=== PATIENT | male | born 1995 | race Caucasian/White ===

== ENCOUNTER 2017-10-25 21:44 | Inpatient (IN) | payer SELFPAY ==
[~2017-10-25] VITALS: Ht 175.3 cm; Wt 62.5 kg
[2017-10-25] MEDS ORDERED: DIPHTH/TETANUS/ACEL PERTUSSIS (BOOSTER) 0.5 ML VIAL/PFS IM ONE (21:47)
[2017-10-25] MEDS ORDERED: ceFAZolin 2 GM PREMIX 50 ML ONE (21:47)
[2017-10-25] MEDS ORDERED: PROPOFOL 1000 MG/100 ML INJ 100 ML ONE (21:52)
[2017-10-25] MEDS ORDERED: MIDAZOLAM HCL 5 MG/ML VIAL (1 ML) ONE (21:52)
[2017-10-25] MEDS ORDERED: GENTAMICIN 80 MG PREMIX 100 ML ONE (21:57)
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
[2017-10-25] MEDS ORDERED: IOHEXOL 350 MG/ML 10 ML VIAL (for RAD DIAG) IVCONTRAST ONE (22:24)
[2017-10-25] MEDS ORDERED: BISACODYL 10 MG SUPP RECTAL PRN (22:30)
[2017-10-25] MEDS ORDERED: PROPOFOL 1000 MG/100 ML INJ 100 ML IV PRN (22:30)
[2017-10-25] MEDS ORDERED: CHLORHEXIDINE GLUCONATE 2 % 1 PACK (2 CLOTHS) TOP PRN (22:30)
[2017-10-25] MEDS ORDERED: MISCELLANEOUS NURSING INFORMATION XX SCH (22:30)
[2017-10-25] MEDS ORDERED: fentaNYL DRIP 250 ML IV PRN (22:30)
[2017-10-25] MEDS ORDERED: LACTULOSE SYRUP 20 GM/30 ML CUP PO PRN (22:30)
[2017-10-25] MEDS ORDERED: MAGNESIUM HYDROXIDE SUSP 30 ML CUP PO PRN (22:30)
[2017-10-25] MEDS ORDERED: SENNOSIDES 8.6 MG TAB PO PRN (22:30)
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
[2017-10-25 22:38] LABS: INTERNATIONAL NORMALIZED RATIO 1.1 RATIO; PROTHROMBIN TIME - PATIENT 11.6 SEC (9.8-11.6)
[2017-10-25 22:39] LABS: AUTOMATED NEUTROPHIL # 9.2 TH/MM3 (1.8-7.7); BASOPHIL # 0.1 TH/MM3 (0-0.2); BASOPHIL % 0.8 % (0.0-2.0); EOSINOPHIL # 0.1 TH/MM3 (0-0.4); EOSINOPHIL % 0.7 % (0.0-4.0); LYMPH % 26.8 % (9.0-44.0); LYMPHOCYTE # 3.7 TH/MM3 (1.0-4.8); MEAN CELL VOLUME 92.5 FL (80.0-100.0); MEAN CORPUSCULAR HEMOGLOBIN 31.4 PG (27.0-34.0); MEAN PLATELET VOLUME 8.2 FL (7.0-11.0); MONO % 5.5 % (0.0-8.0); MONOCYTE # 0.8 TH/MM3 (0-0.9); NEUT % 66.2 % (16.0-70.0); PLATELET COUNT 420 TH/MM3 (150-450); RED BLOOD COUNT 4.76 MIL/MM3 (4.50-5.90); RED CELL DISTRIBUTION WIDTH 12.5 % (11.6-17.2)
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
[2017-10-25 23:00] VITALS: BP 165/79; PULSE 142; RESP 18; TEMP 97.9; O2SAT 100
[2017-10-25] MEDS: SODIUM CHLOR 0.9% 1000 ML INJ 1,000 ML IV SCH (23:00)
[2017-10-25] MEDS: cefTRIAXone INJ 1,000 MG in SODIUM CHLORIDE 0.9% INJ 100 ML IV SCH (23:00)
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
[2017-10-25] MEDS: FAMOTIDINE 20 MG/2 ML VIAL IV PUSH SCH (23:30)
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
[2017-10-25 23:50] VITALS: O2SAT 100
[2017-10-26] VITALS (18 sets, daily range): BP systolic 100–135; BP diastolic 56–79; PULSE 83–139; RESP 18; TEMP 97.9–99.3; O2SAT 100
--- NOTE | 2017-10-26 00:21 | PD.PROCEDR ---
Procedure Note Procedure Central line placement A time-out was completed verifying correct patient, procedure, site, positioning , and special equipment if applicable. The patient was placed in a dependent position appropriate for central line placement based on the vein to be cannulated. The patients right shoulder was prepped and draped in sterile fashion. 1% Lidocaine was used to anesthetize the surrounding skin area. A triple lumen 9-Angolan Cordis catheter was introduced into the the right subclavian vein using the Seldinger technique. The catheter was threaded smoothly over the guide wire and appropriate blood return was obtained. Each lumen of the catheter was evacuated of air and flushed with sterile saline. The catheter was then sutured in place to the skin and a sterile dressing applied. Perfusion to the extremity distal to the point of catheter insertion was checked and found to be adequate. Estimated Blood Loss: 1ml The patient tolerated the procedure well and there were no complications. Mayo Mao MD Oct 26, 2017 00:21
--- NOTE | 2017-10-26 00:22 | PD.OP ---
Operative Report Date of Surgery: Oct 26, 2017 Preoperative Diagnosis: Severe traumatic brain injury Postoperative Diagnosis: Same Procedure: Right frontal twist drill hole intracranial pressure monitor placement Anesthesia: Local with sedation Surgeon: Chandler Klein M.D. Construction Skills Teacher(s): None Operation and Findings: Following administration of Diprivan and fentanyl drips with the oxygen saturation and hemodynamic monitoring in the intensive care unit, the right frontal region was shaved and the prep with chlor prep and sterilely draped. Using landmarks of 11 cm behind the nasion and 3 cm to the right of the midline , a 1 cm scalp incision was made after infiltrating with 1% lidocaine with epinephrine solution. With a handheld drill a twist drill hole was made in the underlying dura penetrated with a blunt probe. The [place] bolt was then secured to the skull. The fiberoptic catheter zeroed and passed into the subarachnoid space with an opening pressure of 5 mmHg noted. A sterile dressing was applied. There were no complications and blood loss was less than 5 cc. Chandler Klein MD Oct 26, 2017 00:22
--- NOTE | 2017-10-26 00:52 | RADRPT ---
EXAM DATE/TIME: 10/26/2017 00:29 [facility] COMPARISON: CT THORAX W CONTRAST, October 25, 2017, 22:04. CHEST SINGLE AP, October 25, 2017, 21:33. INDICATIONS : Central line placement. MEDICAL HISTORY : None. SURGICAL HISTORY : None. ENCOUNTER: Subsequent ACUITY: 2 days PAIN SCORE: Non-responsive. LOCATION: Bilateral chest FINDINGS: Endotracheal tube tip is now approximately 5 cm above the marlen. There is a new subclavian central v enous catheter with tip at the atriocaval junction. There is a new nasogastric tube that courses into the stomach. Mild parenchymal consolidation seen right lower lobe, not convincingly changed. No large effusion/hem othorax demonstrated. No pneumothorax. CONCLUSION: Appropriate position of the lines and tubes as above. Mild patchy consolidation/contusion of the righ t lung again seen. Jonah Marie MD on October 26, 2017 at 0:49 Board Certified Radiologist. This report was verified electronically.
[2017-10-26] MEDS: SODIUM CHLOR 0.9% 1000 ML INJ 1,000 ML IV SCH ×5 (02:45→21:16)
[2017-10-26] MEDS: PROPOFOL 1000 MG/100 ML INJ 100 ML IV PRN ×3 (02:53→19:35)
[2017-10-26] MEDS: levETIRAcetam INJ 500 MG in SODIUM CHLORIDE 0.9% INJ 100 ML IV SCH ×3 (02:54→21:15)
--- NOTE | 2017-10-26 03:21 | PD.PROCEDR ---
Procedure Note Procedure Arterial line placement A time-out was completed verifying correct patient, procedure, site, positioning , and special equipment if applicable. Allens test was performed to ensure adequate perfusion. The patients left elbow was prepped and draped in sterile fashion. 1% Lidocaine was used to anesthetize the area. A 18G Arrow arterial line was introduced into the brachial artery. The catheter was threaded over the guide wire and the needle was removed with appropriate pulsatile blood return. The catheter was then sutured in place to the skin and a sterile dressing applied. Perfusion to the extremity distal to the point of catheter insertion was checked and found to be adequate. Estimated Blood Loss: 1ml The patient tolerated the procedure well and there were no complications. Mayo Mao MD Oct 26, 2017 3:21 am
[2017-10-26] MEDS: CHLORHEXIDINE GLUCONATE 2 % 1 PACK (2 CLOTHS) TOP SCH (04:00)
[2017-10-26 04:37] LABS: AUTOMATED NEUTROPHIL # 8.8 TH/MM3 (1.8-7.7); BASOPHIL % 0.3 % (0.0-2.0); EOSINOPHIL # 0.1 TH/MM3 (0-0.4); EOSINOPHIL % 0.5 % (0.0-4.0); HEMATOCRIT 31.2 % (39.0-51.0); HEMOGLOBIN 10.9 GM/DL (13.0-17.0); LYMPH % 9.5 % (9.0-44.0); MEAN CELL VOLUME 90.2 FL (80.0-100.0); MEAN CORPUSCULAR HEMOGLOBIN 31.4 PG (27.0-34.0); MEAN CORPUSCULAR HGB CONC 34.8 % (32.0-36.0); MEAN PLATELET VOLUME 7.3 FL (7.0-11.0); MONO % 7.4 % (0.0-8.0); MONOCYTE # 0.8 TH/MM3 (0-0.9); NEUT % 82.3 % (16.0-70.0); PLATELET COUNT 186 TH/MM3 (150-450); RED BLOOD COUNT 3.46 MIL/MM3 (4.50-5.90); RED CELL DISTRIBUTION WIDTH 12.6 % (11.6-17.2); WHITE BLOOD COUNT 10.7 TH/MM3 (4.0-11.0)
[2017-10-26 04:52] LABS: INTERNATIONAL NORMALIZED RATIO 1.3 RATIO; PROTHROMBIN TIME - PATIENT 12.7 SEC (9.8-11.6)
[2017-10-26 05:05] LABS: BICARBONATE 22.2 MEQ/L (21.0-32.0); CREATININE 0.83 MG/DL (0.60-1.30); MAGNESIUM 1.5 MG/DL (1.5-2.5)
[2017-10-26 05:17] LABS: TOTAL PROTEIN 5.2 GM/DL (6.4-8.2)
--- NOTE | 2017-10-26 05:26 | RADRPT ---
EXAM DATE/TIME: 10/26/2017 05:04 [facility] COMPARISON: CT BRAIN W/O CONTRAST, October 25, 2017, 21:58. INDICATIONS : Follow up trauma. RADIATION DOSE: 56.35 CTDIvol (mGy) MEDICAL HISTORY : Non-responsive. SURGICAL HISTORY : Non-responsive. ENCOUNTER: Subsequent ACUITY: 2 days PAIN SCALE: Non-responsive LOCATION: cranial TECHNIQUE: Multiple contiguous axial images were obtained of the head. Using automated exposure control and adj ustment of the mA and/or kV according to patient size, radiation dose was kept as low as reasonably a chievable to obtain optimal diagnostic quality images. DICOM format image data is available electro nically for review and comparison. FINDINGS: Small amounts of subdural blood along both cerebral convexities and in between the leaves of the falx and tentorium again noted, not significantly changed. I believe there is some patchy subarachnoid bl ood involving the sulci of the bilateral posterior parietal lobes as well. There is some apparent gen eralized brain swelling/edema, including the cerebellum. A right frontal pressure monitoring bolt has been placed in the interim and there is associated small anti-dependent pneumocephaly seen. No evidence of a focal ischemic event. No mass, mass effect or midline shift seen. CONCLUSION: No significant change small subdural and suspected trace subarachnoid blood as above. Some suspected brain swelling but without midline shift. New pressure monitoring bolt. Jonah Marie MD on October 26, 2017 at 5:22 Board Certified Radiologist. This report was verified electronically.
[2017-10-26] MEDS ORDERED: POTASSIUM CHLOR 20 MEQ PREMIX 100 ML IV PRN ×2 (07:30)
[2017-10-26] MEDS ORDERED: POTASSIUM CHLOR 40 MEQ PREMIX 100 ML IV PRN ×2 (07:30)
[2017-10-26] MEDS ORDERED: MAGNESIUM SULFATE INJ 4 GM in SODIUM CHLORIDE 0.9% INJ 92 ML IV PRN (07:30)
[2017-10-26] MEDS ORDERED: POTASSIUM PHOSPHATE MONOBASIC 500 MG TAB PO/TUBE PRN (07:30)
[2017-10-26] MEDS ORDERED: SODIUM PHOSPHATE INJ 30 MMOL in SODIUM CHLOR 0.9% 250 ML INJ 240 ML IV PRN (07:30)
[2017-10-26] MEDS ORDERED: RESP: ALBUTEROL 2.5 MG/IPRATROPIUM 0.5 MG NEB (PRN) NEB (07:30)
[2017-10-26] MEDS ORDERED: POTASSIUM CHLORIDE 20 MEQ PWD PACKET PO PRN (07:30)
[2017-10-26] MEDS ORDERED: POTASSIUM PHOSPHATE INJ 30 MMOL in SODIUM CHLOR 0.9% 250 ML INJ 250 ML IV PRN (07:30)
[2017-10-26] MEDS ORDERED: MAGNESIUM OXIDE 400 MG TAB PO PRN (07:30)
[2017-10-26] MEDS ORDERED: ALBUMIN 5% INJ 500 ML IV ONE (07:30)
[2017-10-26] MEDS ORDERED: POTASSIUM PHOSPHATE MONOBASIC 500 MG TAB PO PRN (07:30)
[2017-10-26] MEDS ORDERED: MAGNESIUM SULFATE INJ 2 GM in SODIUM CHLORIDE 0.9% INJ 96 ML IV PRN (07:30)
[2017-10-26] MEDS: CHLORHEXIDINE 0.12% (ORAL KIT) 15 ML CUP MT SCH ×2 (07:43→21:16)
[2017-10-26] MEDS: fentaNYL DRIP 250 ML IV PRN ×2 (07:45→16:47)
[2017-10-26] MEDS ORDERED: GENTAMICIN SULFATE 80 MG/2 ML VIAL ONE ×2 (08:27)
[2017-10-26] MEDS ORDERED: ceFAZolin INJ 1,000 MG VIAL ONE (08:27)
[2017-10-26] MEDS: DOCUSATE SODIUM 50 MG/SENNA 8.6 MG TAB PO SCH ×2 (09:00→21:16)
[2017-10-26] MEDS: FAMOTIDINE 20 MG/2 ML VIAL IV PUSH SCH ×2 (09:00→21:15)
[2017-10-26] MEDS ORDERED: TERBUTALINE INJ 1 MG/ML AMP SQ PRN (09:30)
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
[2017-10-26] MEDS: RESP: ALBUTEROL 2.5 MG/IPRATROPIUM 0.5 MG NEB (SCH) NEB ×3 (09:58→20:07)
[2017-10-26] MEDS: NOREPINEPHRINE INJ 4 MG in SODIUM CHLOR 0.9% 250 ML INJ 246 ML IV PRN ×3 (10:00→23:32)
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
[2017-10-26] MEDS: cefTRIAXone INJ 1,000 MG in SODIUM CHLORIDE 0.9% INJ 100 ML IV SCH ×2 (11:00→23:00)
--- NOTE | 2017-10-26 11:26 | PD.OP ---
cc: Prasanth Ca MD Operative Report Date of Surgery: Oct 26, 2017 Preoperative Diagnosis: Open right knee joint, right quadriceps tendon rupture, right humerus fracture, right elbow laceration Postoperative Diagnosis: Procedure: Right knee arthrotomy with irrigation and debridement, primary repair of right quadriceps tendon, irrigation and debridement of right olecranon bursa Surgeon: Prasanth Ca Final Assembly Worker(s): CELESITNA Stein PA-C The surgical procedure was assisted by my physician sales office assistant. My P.A. presence was necessary throughout this case for the manipulation and positioning of the surgical extremity. My P.A. was assisting me throughout the duration of this procedure. The skill set of a physician sales office assistant was medically necessary to complete this procedure. During the surgical case the salesperson surgical appliances was working at the back table and the physician sales office assistant was directly assisting me. Operation and Findings: This patient had multiple injuries including an open right knee joint laceration and complete right quadriceps tendon rupture. He also had a right humeral shaft fracture with small laceration over his elbow. Informed consent was confirmed preoperatively and informed consent was obtained. I had a detailed discussion with the patients family regarding the risks and benefits of surgery. Patient was brought to the operating room. Patient was left on his hospital bed and not transferred to the operating room table because of his elevated intracranial pressures. IV sedation and GETA were administered by anesthesiologist and IV antibiotics were given prior to incision. A timeout procedure was performed. The right arm and right leg were prepped with alcohol followed by Hibiclens and draped in the usual sterile fashion. The procedure began irrigation debridement of the right knee. There was a complex laceration over the knee. The quadriceps tendon was completely lacerated. This point attention was turned to irrigation debridement of the knee joint. Skin subcutaneous tissue fascia and muscle and bone were sharply debrided. An excisional treatment was performed. Curettes and rongeurs were used to debride soft tissue and bone. All foreign material was excised. The wound was now thoroughly irrigated with pulsatile lavage. Next attention was turned towards repair of the quadriceps tendon. A rongeur was used to debride the superior pole of the patella. The quadriceps tendon was completely avulsed off of bone. Next, 3 drill tunnels were created from superior to inferior across the body of the patella. Two #1 PDS sutures were now passed through the quadriceps tendon in a [place] style fashion. The sutures were now passed through the drill holes of the patella. The quadriceps tendon was now reduced to the patella. Sutures were tensioned and tied. The remainder of the retinaculum was now closed with #1 PDS. Subcutaneous tissue was closed with 3-0 PDS and skin was closed with 3-0 nylon. The skin laceration was complex. Skin laceration was closed with 3-0 nylon in vertical mattress fashion, retention sutures, and horizontal mattress suture. Next attention was turned towards the right arm. The laceration over the olecranon did not appear to continue with the humerus. The olecranon bursa was debrided with curettes and rongeurs. There was areas of foreign material which were excised. Curettes and rongeurs were used to debride the bursa. The olecranon bursa was now thoroughly irrigated with sterile saline. The laceration was now closed with 3-0 nylon. Sterile dressings were applied. The right arm was placed into a long-arm splint. The patient placed into a knee immobilizer and was transferred to intensive care in critical condition. Needle and sponge counts were correct. Prasanth Ca MD Oct 26, 2017 11:26
[2017-10-26] MEDS ORDERED: PROPOFOL 200 MG/20 ML AMP IV ONE (12:00)
[2017-10-26] MEDS ORDERED: ceFAZolin INJ 1,000 MG VIAL IV ONE (12:00)
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
[2017-10-26] MEDS ORDERED: ceFAZolin 2 GM PREMIX 50 ML IV SCH (16:00)
[2017-10-26] MEDS: POTASSIUM CHLOR 40 MEQ PREMIX 100 ML IV SCH ×2 (16:02→18:36)
[2017-10-26] MEDS: CEFAZOLIN INJ 2,000 MG in SODIUM CHLORIDE 0.9% INJ 100 ML IV SCH (16:46)
[2017-10-26] MEDS: GENTAMICIN INJ 80 MG in SODIUM CHLORIDE 0.9% INJ 100 ML IV SCH (17:45)
[2017-10-26] MEDS ORDERED: GENTAMICIN 80 MG PREMIX 100 ML IV SCH (18:00)
[2017-10-27] VITALS (17 sets, daily range): BP systolic 101–126; BP diastolic 62–73; PULSE 99–119; RESP 18; TEMP 98.4–100.4; O2SAT 100
[2017-10-27] MEDS: CEFAZOLIN INJ 2,000 MG in SODIUM CHLORIDE 0.9% INJ 100 ML IV SCH ×3 (00:18→18:17)
[2017-10-27] MEDS: PROPOFOL 1000 MG/100 ML INJ 100 ML IV PRN ×4 (00:19→18:17)
[2017-10-27] MEDS: fentaNYL DRIP 250 ML IV PRN ×3 (01:20→18:17)
[2017-10-27] MEDS: GENTAMICIN INJ 80 MG in SODIUM CHLORIDE 0.9% INJ 100 ML IV SCH ×3 (01:21→18:17)
[2017-10-27] MEDS: RESP: ALBUTEROL 2.5 MG/IPRATROPIUM 0.5 MG NEB (SCH) NEB ×4 (03:35→20:28)
[2017-10-27 03:57] LABS: BASOPHIL % 0.6 % (0.0-2.0); EOSINOPHIL # 0.2 TH/MM3 (0-0.4); EOSINOPHIL % 2.7 % (0.0-4.0); HEMATOCRIT 26.3 % (39.0-51.0); HEMOGLOBIN 9.1 GM/DL (13.0-17.0); LYMPH % 14.7 % (9.0-44.0); MEAN CELL VOLUME 91.5 FL (80.0-100.0); MEAN CORPUSCULAR HEMOGLOBIN 31.7 PG (27.0-34.0); MEAN CORPUSCULAR HGB CONC 34.6 % (32.0-36.0); MEAN PLATELET VOLUME 7.6 FL (7.0-11.0); MONO % 8.9 % (0.0-8.0); MONOCYTE # 0.6 TH/MM3 (0-0.9); NEUT % 73.1 % (16.0-70.0); PLATELET COUNT 161 TH/MM3 (150-450); RED BLOOD COUNT 2.88 MIL/MM3 (4.50-5.90); WHITE BLOOD COUNT 6.8 TH/MM3 (4.0-11.0)
[2017-10-27] MEDS: CHLORHEXIDINE GLUCONATE 2 % 1 PACK (2 CLOTHS) TOP SCH (04:00)
--- NOTE | 2017-10-27 04:06 | RADRPT ---
EXAM DATE/TIME: 10/27/2017 03:18 [place] COMPARISON: CHEST SINGLE AP, October 26, 2017, 0:29. INDICATIONS : Pulmonary contusion. MEDICAL HISTORY : None. SURGICAL HISTORY : None. ENCOUNTER: Subsequent ACUITY: 3 days PAIN SCORE: Non-responsive. LOCATION: Bilateral chest FINDINGS: A single view of the chest demonstrates the lungs to be symmetrically aerated without evidence of mas s, infiltrate or effusion. The endotracheal tube, nasogastric tube and right subclavian central line are in good position The cardiomediastinal contours are unremarkable. Osseous structures are intact. CONCLUSION: The endotracheal tube, nasogastric tube and right subclavian central line are in good position. Jan Pino MD on October 27, 2017 at 4:04 Board Certified Radiologist. This report was verified electronically.
[2017-10-27 04:22] LABS: BICARBONATE 21.5 MEQ/L (21.0-32.0); CALCIUM 7.6 MG/DL (8.5-10.1); CREATININE 0.82 MG/DL (0.60-1.30)
[2017-10-27] MEDS: SODIUM CHLOR 0.9% 1000 ML INJ 1,000 ML IV SCH (05:00)
[2017-10-27] MEDS: NOREPINEPHRINE INJ 4 MG in SODIUM CHLOR 0.9% 250 ML INJ 246 ML IV PRN (06:04)
[2017-10-27] MEDS: CHLORHEXIDINE 0.12% (ORAL KIT) 15 ML CUP MT SCH ×2 (08:00→20:00)
[2017-10-27] MEDS: levETIRAcetam INJ 500 MG in SODIUM CHLORIDE 0.9% INJ 100 ML IV SCH ×2 (08:58→21:42)
[2017-10-27] MEDS: DOCUSATE SODIUM 50 MG/SENNA 8.6 MG TAB PO SCH ×2 (08:58→21:43)
[2017-10-27] MEDS: FAMOTIDINE 20 MG/2 ML VIAL IV PUSH SCH (08:58)
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
[2017-10-27] MEDS: cefTRIAXone INJ 1,000 MG in SODIUM CHLORIDE 0.9% INJ 100 ML IV SCH ×2 (11:29→23:00)
[2017-10-27] MEDS: LACTULOSE SYRUP 20 GM/30 ML CUP PO SCH (11:35)
--- NOTE | 2017-10-27 12:19 | PD.ORT.PN ---
Subjective Subjective Remarks Patient intubated and sedated. Mother at bedside. Objective Vitals Vital Signs Date Time Temp Pulse Resp B/P (MAP) Pulse Ox O2 Delivery O2 Flow Rate FiO2 10/27/17 10:49 100 30 10/27/17 10:49 100 30 10/27/17 06:04 110 98/60 10/27/17 06:00 109 10/27/17 04:00 98.6 106 18 104/64 (77) 100 10/27/17 04:00 40 10/27/17 04:00 106 10/27/17 02:00 108 10/27/17 00:21 100 30 10/27/17 00:00 109 10/27/17 00:00 98.4 109 18 104/67 (79) 100 10/27/17 00:00 40 10/26/17 23:32 109 108/69 10/26/17 22:00 109 10/26/17 20:08 100 30 10/26/17 20:00 98.6 102 18 102/68 (79) 100 10/26/17 20:00 106 10/26/17 20:00 40 10/26/17 19:00 100 Mechanical Ventilator 40 10/26/17 18:00 105 10/26/17 17:14 105 107/60 10/26/17 17:06 105 107/60 10/26/17 16:47 106 108/58 10/26/17 16:00 101 10/26/17 16:00 99.0 101 18 106/62 (77) 100 10/26/17 16:00 40 10/26/17 15:47 100 30 10/26/17 14:00 92 I/O 10/26/17 10/26/17 10/26/17 10/27/17 10/27/17 10/27/17 06:59 14:59 22:59 06:59 14:59 22:59 Intake Total 2205 ml 905 ml 2157 ml 350 ml Output Total 275 ml 50 ml 1000 ml 2275 ml Balance 1930 ml 855 ml 1157 ml -1925 ml Intake IV Total 2205 ml 705 ml 2127 ml 350 ml Tube Irrigant 30 ml Other 200 ml Output Urine Total 275 ml 1000 ml 2275 ml Gastric Drainage Total 0 ml Estimated Blood Loss 50 ml # Bowel Movements 0 Result Diagram: 10/27/17 0335 10/27/17 0335 Imaging Last 24 hours Impressions Chest X-Ray 10/27/17 0600 Signed Impressions: Service Date/Time: Friday, October 27, 2017 03:18 - CONCLUSION: The endotracheal tube, nasogastric tube and right subclavian central line are in good position. Jan Pino MD Objective Remarks Right elbow yehuda wrap and splint intact skin warm 2+ radial pulses Right knee yehuda wrap intact knee immobilizer in place skin warm 2+ dorsalis pedis pulses Assessment & Plan Assessment and Plan POD #1 Right knee arthrotomy with irrigation and debridement, primary repair of right quadriceps tendon, irrigation and debridement of right olecranon bursa ICU management Pain management Physical therapy - no leg lift or quad sets to RLE - knee immobilizer on right leg at all times Ice application to operative site x 48 hours Do not change dressings to right arm or right leg Monitor Hans Herrera Oct 27, 2017 12:19
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
[2017-10-27] MEDS: FAMOTIDINE 20 MG TAB PO SCH (21:42)
[2017-10-28] VITALS (18 sets, daily range): BP systolic 96–118; BP diastolic 57–67; PULSE 82–104; RESP 16; TEMP 99.3–100.8; O2SAT 99–100
[2017-10-28] MEDS: CEFAZOLIN INJ 2,000 MG in SODIUM CHLORIDE 0.9% INJ 100 ML IV SCH ×2 (00:42→08:09)
[2017-10-28] MEDS: PROPOFOL 1000 MG/100 ML INJ 100 ML IV PRN ×5 (02:16→22:18)
[2017-10-28] MEDS: GENTAMICIN INJ 80 MG in SODIUM CHLORIDE 0.9% INJ 100 ML IV SCH ×2 (02:17→10:27)
[2017-10-28] MEDS: RESP: ALBUTEROL 2.5 MG/IPRATROPIUM 0.5 MG NEB (SCH) NEB ×4 (03:33→19:41)
[2017-10-28] MEDS: CHLORHEXIDINE GLUCONATE 2 % 1 PACK (2 CLOTHS) TOP SCH (04:00)
[2017-10-28] MEDS: fentaNYL DRIP 250 ML IV PRN ×2 (05:02→16:49)
[2017-10-28 05:47] LABS: BASOPHIL % 0.2 % (0.0-2.0); EOSINOPHIL # 0.1 TH/MM3 (0-0.4); EOSINOPHIL % 2.4 % (0.0-4.0); HEMOGLOBIN 8.6 GM/DL (13.0-17.0); LYMPH % 9.7 % (9.0-44.0); LYMPHOCYTE # 0.6 TH/MM3 (1.0-4.8); MEAN CELL VOLUME 91.6 FL (80.0-100.0); MEAN CORPUSCULAR HEMOGLOBIN 31.7 PG (27.0-34.0); MEAN CORPUSCULAR HGB CONC 34.6 % (32.0-36.0); MONO % 7.2 % (0.0-8.0); MONOCYTE # 0.4 TH/MM3 (0-0.9); NEUT % 80.5 % (16.0-70.0); PLATELET COUNT 127 TH/MM3 (150-450); RED BLOOD COUNT 2.73 MIL/MM3 (4.50-5.90); RED CELL DISTRIBUTION WIDTH 12.8 % (11.6-17.2); WHITE BLOOD COUNT 6.2 TH/MM3 (4.0-11.0)
[2017-10-28 06:11] LABS: BICARBONATE 23.7 MEQ/L (21.0-32.0); CREATININE 0.97 MG/DL (0.60-1.30)
[2017-10-28] MEDS: CHLORHEXIDINE 0.12% (ORAL KIT) 15 ML CUP MT SCH ×2 (08:00→21:00)
[2017-10-28] MEDS: levETIRAcetam INJ 500 MG in SODIUM CHLORIDE 0.9% INJ 100 ML IV SCH ×2 (08:09→21:01)
[2017-10-28] MEDS: FAMOTIDINE 20 MG TAB PO SCH ×2 (08:09→21:00)
[2017-10-28] MEDS: LACTULOSE SYRUP 20 GM/30 ML CUP PO SCH (08:09)
[2017-10-28] MEDS: DOCUSATE SODIUM 50 MG/SENNA 8.6 MG TAB PO SCH ×2 (08:09→21:00)
[2017-10-28] MEDS: 3% SALINE INJ 500 ML IV SCH (10:27)
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
--- NOTE | 2017-10-28 13:34 | PD.ORT.PN ---
Subjective Subjective Remarks Patient intubated and sedated. Objective Vitals Vital Signs Date Time Temp Pulse Resp B/P (MAP) Pulse Ox O2 Delivery O2 Flow Rate FiO2 10/28/17 12:00 100 10/28/17 12:00 99.3 100 16 96/57 (70) 100 10/28/17 12:00 30 10/28/17 11:37 100 30 10/28/17 10:00 99 10/28/17 08:00 30 10/28/17 08:00 100.2 96 16 114/67 (83) 100 10/28/17 08:00 95 10/28/17 07:53 100 30 10/28/17 07:00 Mechanical Ventilator 30 10/28/17 06:00 82 10/28/17 04:04 100 30 10/28/17 04:00 30 10/28/17 04:00 100.0 100 16 116/65 (82) 100 10/28/17 04:00 100 10/28/17 02:00 104 10/28/17 00:00 30 10/28/17 00:00 100.4 104 16 118/64 (82) 100 10/28/17 00:00 104 10/27/17 23:45 100 30 10/27/17 22:00 104 10/27/17 20:28 100 30 10/27/17 20:28 100 30 10/27/17 20:00 100.0 99 18 105/63 (77) 100 10/27/17 20:00 99 10/27/17 20:00 30 10/27/17 19:00 100 Mechanical Ventilator 30 10/27/17 18:00 109 10/27/17 17:07 100 30 10/27/17 16:00 109 10/27/17 16:00 40 10/27/17 16:00 100.4 102 18 101/62 (75) 100 10/27/17 14:00 109 I/O 10/27/17 10/27/17 10/27/17 10/28/17 10/28/17 10/28/17 07:00 15:00 23:00 07:00 15:00 23:00 Intake Total 350 ml 100 ml 305 ml 910 ml 320 ml Output Total 2275 ml 1700 ml 1100 ml Balance -1925 ml 100 ml -1395 ml -190 ml 320 ml Intake IV Total 350 ml 100 ml 305 ml 672 ml 320 ml Tube Feeding 238 ml Output Urine Total 2275 ml 1700 ml 1100 ml Stool Total 0 ml Result Diagram: 10/28/17 0520 10/28/17 1150 Imaging Last 24 hours Impressions Chest X-Ray 10/27/17 0600 Signed Impressions: Service Date/Time: Friday, October 27, 2017 03:18 - CONCLUSION: The endotracheal tube, nasogastric tube and right subclavian central line are in good position. Jan Pino MD Objective Remarks Right elbow yehuda wrap and splint intact skin warm 2+ radial pulses Right knee yehuda wrap intact knee immobilizer in place skin warm 2+ dorsalis pedis pulses Assessment & Plan Assessment and Plan POD #2 Right knee arthrotomy with irrigation and debridement, primary repair of right quadriceps tendon, irrigation and debridement of right olecranon bursa ICU management Pain management Physical therapy - no leg lift or quad sets to RLE - knee immobilizer on right leg at all times Ice application to operative site x 48 hours Do not change dressings to right arm or right leg Monitor Hans Herrera Oct 28, 2017 13:34
[2017-10-28] MEDS: NOREPINEPHRINE INJ 4 MG in SODIUM CHLOR 0.9% 250 ML INJ 246 ML IV PRN (16:04)
[2017-10-29] VITALS (20 sets, daily range): BP systolic 110–142; BP diastolic 62–82; PULSE 88–108; RESP 16; TEMP 99.3–101; O2SAT 99–100
[2017-10-29] MEDS: RESP: ALBUTEROL 2.5 MG/IPRATROPIUM 0.5 MG NEB (SCH) NEB ×4 (03:01→19:32)
[2017-10-29] MEDS: fentaNYL DRIP 250 ML IV PRN ×3 (03:47→23:52)
[2017-10-29] MEDS: PROPOFOL 1000 MG/100 ML INJ 100 ML IV PRN ×4 (03:47→23:52)
[2017-10-29] MEDS: CHLORHEXIDINE GLUCONATE 2 % 1 PACK (2 CLOTHS) TOP SCH (03:47)
[2017-10-29 04:43] LABS: AUTOMATED NEUTROPHIL # 4.2 TH/MM3 (1.8-7.7); BASOPHIL % 0.6 % (0.0-2.0); EOSINOPHIL # 0.2 TH/MM3 (0-0.4); EOSINOPHIL % 3.2 % (0.0-4.0); HEMATOCRIT 24.4 % (39.0-51.0); HEMOGLOBIN 8.5 GM/DL (13.0-17.0); LYMPH % 11.6 % (9.0-44.0); LYMPHOCYTE # 0.6 TH/MM3 (1.0-4.8); MEAN CELL VOLUME 90.3 FL (80.0-100.0); MEAN CORPUSCULAR HEMOGLOBIN 31.4 PG (27.0-34.0); MEAN CORPUSCULAR HGB CONC 34.7 % (32.0-36.0); MEAN PLATELET VOLUME 7.5 FL (7.0-11.0); MONO % 8.6 % (0.0-8.0); MONOCYTE # 0.5 TH/MM3 (0-0.9); PLATELET COUNT 161 TH/MM3 (150-450); RED CELL DISTRIBUTION WIDTH 12.5 % (11.6-17.2); WHITE BLOOD COUNT 5.6 TH/MM3 (4.0-11.0)
[2017-10-29 05:25] LABS: CALCIUM 8.2 MG/DL (8.5-10.1); CREATININE 0.96 MG/DL (0.60-1.30)
--- NOTE | 2017-10-29 07:08 | PD.ORT.PN ---
Subjective Subjective Remarks POD 3 s/p I&D with quad tendon repair right knee s/p right humerus fx stable. no changes. Objective Vitals Vital Signs Date Time Temp Pulse Resp B/P (MAP) Pulse Ox O2 Delivery O2 Flow Rate FiO2 10/29/17 06:00 92 10/29/17 04:00 91 10/29/17 04:00 100.2 91 16 110/64 (79) 100 10/29/17 02:00 96 10/29/17 00:00 96 10/29/17 00:00 30 10/29/17 00:00 101.0 96 16 121/62 (81) 99 10/28/17 22:00 94 10/28/17 20:00 100.8 99 16 112/59 (76) 99 10/28/17 20:00 30 10/28/17 20:00 100 10/28/17 19:40 100 30 10/28/17 19:40 100 30 10/28/17 19:00 100 Mechanical Ventilator 30 10/28/17 18:00 92 10/28/17 16:54 100 30 10/28/17 16:04 92 107/54 10/28/17 16:00 99.5 92 16 112/59 (76) 100 10/28/17 16:00 30 10/28/17 16:00 92 10/28/17 14:36 92 94/54 10/28/17 14:00 100 10/28/17 13:49 100 30 10/28/17 12:00 100 10/28/17 12:00 99.3 100 16 96/57 (70) 100 10/28/17 12:00 30 10/28/17 11:37 100 30 10/28/17 10:00 99 10/28/17 08:00 30 10/28/17 08:00 100.2 96 16 114/67 (83) 100 10/28/17 08:00 95 10/28/17 07:53 100 30 I/O 10/28/17 10/28/17 10/28/17 10/29/17 10/29/17 10/29/17 07:00 15:00 23:00 07:00 15:00 23:00 Intake Total 910 ml 420 ml 927 ml 499 ml Output Total 1100 ml 1600 ml 1100 ml Balance -190 ml 420 ml -673 ml -601 ml Intake IV Total 672 ml 420 ml 450 ml 350 ml Tube Feeding 238 ml 377 ml 49 ml Tube Irrigant 100 ml Other 100 ml Output Urine Total 1100 ml 1600 ml 1100 ml # Bowel Movements 0 0 Result Diagram: 10/29/170 10/29/17 0430 Imaging Last 24 hours Impressions Chest X-Ray 10/27/17 0600 Signed Impressions: Service Date/Time: Friday, October 27, 2017 03:18 - CONCLUSION: The endotracheal tube, nasogastric tube and right subclavian central line are in good position. Jan Pino MD Objective Remarks Right elbow yehuda wrap and splint intact skin warm 2+ radial pulses Right knee yehuda wrap intact knee immobilizer in place skin warm 2+ dorsalis pedis pulses Assessment & Plan Assessment and Plan POD #3 Right knee arthrotomy with irrigation and debridement, primary repair of right quadriceps tendon, irrigation and debridement of right olecranon bursa ICU management Pain management Physical therapy - no leg lift or quad sets to RLE - knee immobilizer on right leg at all times Ice application to operative site x 48 hours Do not change dressings to right arm or right leg Monitor ICPs still not stable enough for surgery to right arm. will need to be able to sustain being in lateral position before can proceed with ORIF of humerus Zachariah Gonzalez/Pilot Teacher PA Oct 29, 2017 07:08
[2017-10-29] MEDS: NOREPINEPHRINE INJ 4 MG in SODIUM CHLOR 0.9% 250 ML INJ 246 ML IV PRN (07:42)
[2017-10-29] MEDS: CHLORHEXIDINE 0.12% (ORAL KIT) 15 ML CUP MT SCH ×2 (07:43→19:57)
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
[2017-10-29] MEDS: LACTULOSE SYRUP 20 GM/30 ML CUP PO SCH (08:43)
[2017-10-29] MEDS: levETIRAcetam INJ 500 MG in SODIUM CHLORIDE 0.9% INJ 100 ML IV SCH ×2 (08:43→19:57)
[2017-10-29] MEDS: FAMOTIDINE 20 MG TAB PO SCH ×2 (08:43→19:56)
[2017-10-29] MEDS: DOCUSATE SODIUM 50 MG/SENNA 8.6 MG TAB PO SCH ×2 (08:43→19:56)
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
[2017-10-29] MEDS ORDERED: BISACODYL 10 MG SUPP RECTAL ONE (09:15)
[2017-10-29] MEDS: 3% SALINE INJ 500 ML IV SCH (10:05)
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
[2017-10-29] MEDS: ACETAMINOPHEN 1000 MG/100 ML 100 ML IV PRN (16:43)
[2017-10-30] VITALS (19 sets, daily range): BP systolic 110–133; BP diastolic 59–78; PULSE 82–107; RESP 16–24; TEMP 98.8–100.8; O2SAT 97–100
[2017-10-30] MEDS: ACETAMINOPHEN 1000 MG/100 ML 100 ML IV PRN ×2 (03:04→22:39)
[2017-10-30] MEDS: RESP: ALBUTEROL 2.5 MG/IPRATROPIUM 0.5 MG NEB (SCH) NEB ×2 (03:49→08:58)
[2017-10-30] MEDS: PROPOFOL 1000 MG/100 ML INJ 100 ML IV PRN ×3 (03:59→21:50)
[2017-10-30] MEDS: CHLORHEXIDINE GLUCONATE 2 % 1 PACK (2 CLOTHS) TOP SCH (04:00)
--- NOTE | 2017-10-30 05:37 | RADRPT ---
EXAM DATE/TIME: 10/30/2017 04:14 [place] COMPARISON: CHEST SINGLE AP, October 27, 2017, 3:18. INDICATIONS : Respiratory distress. MEDICAL HISTORY : None. SURGICAL HISTORY : None. ENCOUNTER: Subsequent ACUITY: 4 - 6 days PAIN SCORE: Non-responsive. LOCATION: Bilateral chest FINDINGS: Endotracheal tube, nasogastric tube and right subclavian central line are stable. No developing bibas ilar infiltrates. No significant effusion. Cardiac contours are stable and satisfactory. CONCLUSION: Bibasilar infiltrates. Jonah Ramirez MD on October 30, 2017 at 5:34 Board Certified Radiologist. This report was verified electronically.
[2017-10-30 06:16] LABS: AUTOMATED NEUTROPHIL # 4.1 TH/MM3 (1.8-7.7); BASOPHIL % 0.6 % (0.0-2.0); EOSINOPHIL # 0.2 TH/MM3 (0-0.4); HEMATOCRIT 23.5 % (39.0-51.0); HEMOGLOBIN 8.2 GM/DL (13.0-17.0); LYMPH % 8.3 % (9.0-44.0); LYMPHOCYTE # 0.4 TH/MM3 (1.0-4.8); MEAN CORPUSCULAR HEMOGLOBIN 31.5 PG (27.0-34.0); MEAN CORPUSCULAR HGB CONC 34.7 % (32.0-36.0); MEAN PLATELET VOLUME 6.9 FL (7.0-11.0); MONO % 9.1 % (0.0-8.0); MONOCYTE # 0.5 TH/MM3 (0-0.9); PLATELET COUNT 197 TH/MM3 (150-450); RED BLOOD COUNT 2.59 MIL/MM3 (4.50-5.90); RED CELL DISTRIBUTION WIDTH 12.6 % (11.6-17.2); WHITE BLOOD COUNT 5.2 TH/MM3 (4.0-11.0)
[2017-10-30 06:52] LABS: ALBUMIN 2.5 GM/DL (3.4-5.0); AST (GOT) 60 U/L (15-37); BICARBONATE 24.4 MEQ/L (21.0-32.0); BLOOD UREA NITROGEN 9 MG/DL (7-18); CALCIUM 7.9 MG/DL (8.5-10.1); CHLORIDE 108 MEQ/L (98-107); CREATININE 0.94 MG/DL (0.60-1.30); GLOMERULAR FILTRATION RATE 100 ML/MIN (>89); GLUCOSE,RANDOM 125 MG/DL (74-106); SODIUM (NA) 140 MEQ/L (136-145)
[2017-10-30 06:53] LABS: ALT (GPT) 30 U/L (12-78)
[2017-10-30 06:56] LABS: ALKALINE PHOSPHATASE 62 U/L (45-117); TOTAL BILIRUBIN ADULT 0.7 MG/DL (0.2-1.0); TOTAL PROTEIN 6.3 GM/DL (6.4-8.2)
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
[2017-10-30] MEDS: CHLORHEXIDINE 0.12% (ORAL KIT) 15 ML CUP MT SCH ×2 (08:05→20:29)
[2017-10-30] MEDS: FAMOTIDINE 20 MG TAB PO SCH ×2 (08:34→20:28)
[2017-10-30] MEDS: LACTULOSE SYRUP 20 GM/30 ML CUP PO SCH (08:34)
[2017-10-30] MEDS: levETIRAcetam INJ 500 MG in SODIUM CHLORIDE 0.9% INJ 100 ML IV SCH ×2 (08:34→20:28)
[2017-10-30] MEDS: DOCUSATE SODIUM 50 MG/SENNA 8.6 MG TAB PO SCH ×2 (08:35→20:28)
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
--- NOTE | 2017-10-30 10:04 | RADRPT ---
EXAM DATE/TIME: 10/30/2017 09:47 [facility] COMPARISON: CT BRAIN W/O CONTRAST, October 26, 2017, 5:04. CT BRAIN W/O CONTRAST, October 25, 2017, 21:58. INDICATIONS : Follow up bleed. RADIATION DOSE: 50.88 CTDIvol (mGy) MEDICAL HISTORY : Non-responsive. SURGICAL HISTORY : ICP monitor ENCOUNTER: Subsequent ACUITY: 4 - 6 days PAIN SCALE: Non-responsive LOCATION: cranial TECHNIQUE: Multiple contiguous axial images were obtained of the head. Using automated exposure control and adj ustment of the mA and/or kV according to patient size, radiation dose was kept as low as reasonably a chievable to obtain optimal diagnostic quality images. DICOM format image data is available electro nically for review and comparison. FINDINGS: Trace subdural blood again noted, most conspicuous bilateral parietal convexities and in between the falx and tentorium. The amount of blood is without appreciable change. No mass, mass effect or midlin e shift. No evidence of an acute ischemic event. Zepeda/white matter differentiation within normal limi ts. Pressure monitoring bolt again seen. The small pneumocephaly seen on the has resolved. CONCLUSION: Very small subdural blood again seen as above. No significant change. Jonah Marie MD on October 30, 2017 at 10:01 Board Certified Radiologist. This report was verified electronically.
[2017-10-30] MEDS: fentaNYL DRIP 250 ML IV PRN ×2 (10:21→22:58)
[2017-10-30] MEDS: 3% SALINE INJ 500 ML IV SCH (11:54)
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
[2017-10-31] VITALS (18 sets, daily range): BP systolic 120–159; BP diastolic 66–90; PULSE 84–110; RESP 18–28; TEMP 98.2–100.4; O2SAT 97–100
[2017-10-31] MEDS: PROPOFOL 1000 MG/100 ML INJ 100 ML IV PRN ×2 (03:00→08:10)
[2017-10-31] MEDS: CHLORHEXIDINE GLUCONATE 2 % 1 PACK (2 CLOTHS) TOP SCH (04:00)
[2017-10-31 05:02] LABS: AUTOMATED NEUTROPHIL # 2.9 TH/MM3 (1.8-7.7); BASOPHIL % 0.6 % (0.0-2.0); EOSINOPHIL # 0.2 TH/MM3 (0-0.4); EOSINOPHIL % 4.2 % (0.0-4.0); HEMATOCRIT 24.1 % (39.0-51.0); HEMOGLOBIN 8.4 GM/DL (13.0-17.0); LYMPHOCYTE # 0.7 TH/MM3 (1.0-4.8); MEAN CELL VOLUME 89.8 FL (80.0-100.0); MEAN CORPUSCULAR HEMOGLOBIN 31.2 PG (27.0-34.0); MEAN CORPUSCULAR HGB CONC 34.8 % (32.0-36.0); MEAN PLATELET VOLUME 6.6 FL (7.0-11.0); MONO % 13.3 % (0.0-8.0); MONOCYTE # 0.6 TH/MM3 (0-0.9); NEUT % 65.9 % (16.0-70.0); PLATELET COUNT 264 TH/MM3 (150-450); RED BLOOD COUNT 2.68 MIL/MM3 (4.50-5.90); RED CELL DISTRIBUTION WIDTH 12.6 % (11.6-17.2); WHITE BLOOD COUNT 4.4 TH/MM3 (4.0-11.0)
[2017-10-31 05:33] LABS: ALBUMIN 2.6 GM/DL (3.4-5.0); ALT (GPT) 31 U/L (12-78); AST (GOT) 54 U/L (15-37); BICARBONATE 23.7 MEQ/L (21.0-32.0); BLOOD UREA NITROGEN 11 MG/DL (7-18); CALCIUM 8.3 MG/DL (8.5-10.1); CHLORIDE 106 MEQ/L (98-107); CREATININE 0.83 MG/DL (0.60-1.30); GLOMERULAR FILTRATION RATE 116 ML/MIN (>89); GLUCOSE,RANDOM 91 MG/DL (74-106); SODIUM (NA) 138 MEQ/L (136-145)
[2017-10-31 05:35] LABS: ALKALINE PHOSPHATASE 61 U/L (45-117); TOTAL BILIRUBIN ADULT 0.8 MG/DL (0.2-1.0); TOTAL PROTEIN 6.6 GM/DL (6.4-8.2)
--- NOTE | 2017-10-31 05:56 | RADRPT ---
EXAM DATE/TIME: 10/31/2017 03:51 [facility] COMPARISON: CHEST SINGLE AP, October 30, 2017, 4:14. INDICATIONS : Shortness of breath. MEDICAL HISTORY : None. SURGICAL HISTORY : None. ENCOUNTER: Subsequent ACUITY: 4 - 6 days PAIN SCORE: Non-responsive. LOCATION: Bilateral chest FINDINGS: Endotracheal tube, nasogastric tube and right subclavian central line are stable. Hazy right chest pl eural-parenchymal opacities unchanged. Minimal basilar parenchymal opacity in the left also stable. C ardiac contours are unchanged. CONCLUSION: Stable chest. Jonah Ramirez MD on October 31, 2017 at 5:53 Board Certified Radiologist. This report was verified electronically.
--- NOTE | 2017-10-31 07:19 | PD.ORT.PN ---
Subjective Subjective Remarks POD 5 s/p I&D with quad tendon repair right knee s/p right humerus fx stable. no changes. Objective Vitals Vital Signs Date Time Temp Pulse Resp B/P (MAP) Pulse Ox O2 Delivery O2 Flow Rate FiO2 10/31/17 06:00 88 10/31/17 04:00 30 10/31/17 04:00 84 10/31/17 04:00 99.7 84 18 124/70 (88) 100 10/31/17 03:59 100 30 10/31/17 02:00 84 10/31/17 00:33 100 30 10/31/17 00:00 100.2 85 18 120/73 (89) 99 10/31/17 00:00 30 10/31/17 00:00 85 10/30/17 22:00 98 10/30/17 20:01 100 30 10/30/17 20:00 98 10/30/17 20:00 100.4 98 18 133/72 (92) 100 10/30/17 20:00 30 10/30/17 19:00 100 Mechanical Ventilator 30 10/30/17 18:00 107 10/30/17 16:00 98.8 100 24 126/78 (94) 100 10/30/17 16:00 30 10/30/17 16:00 87 10/30/17 15:49 100 30 10/30/17 15:49 100 30 10/30/17 14:00 100 10/30/17 13:40 100 30 10/30/17 12:00 82 10/30/17 12:00 60 10/30/17 12:00 99.0 84 20 110/59 (76) 97 10/30/17 10:00 102 10/30/17 09:35 100 100 10/30/17 08:58 100 60 10/30/17 08:00 95 10/30/17 08:00 100.0 88 16 114/61 (78) 100 Automatic Cuff 10/30/17 08:00 30 I/O 10/30/17 10/30/17 10/30/17 10/31/17 10/31/17 10/31/17 06:59 14:59 22:59 06:59 14:59 22:59 Intake Total 703 ml 878 ml 296 ml Output Total 855.0 ml 1400 ml 1200 ml Balance -152.0 ml -522 ml -904 ml Intake IV Total 350 ml 550 ml 100 ml Tube Feeding 293 ml 298 ml 106 ml Tube Irrigant 60 ml 30 ml 90 ml Output Urine Total 775 ml 1400 ml 1200 ml Tube Feeding Residual Discard 80.0 ml # Bowel Movements 1 0 0 Result Diagram: 10/31/175 10/31/17 0445 Imaging Last 24 hours Impressions Chest X-Ray 10/27/17 0600 Signed Impressions: Service Date/Time: Friday, October 27, 2017 03:18 - CONCLUSION: The endotracheal tube, nasogastric tube and right subclavian central line are in good position. Jan Pino MD Objective Remarks Right elbow yehuda wrap and splint intact skin warm 2+ radial pulses Right knee yehuda wrap intact knee immobilizer in place skin warm 2+ dorsalis pedis pulses Assessment & Plan Assessment and Plan POD #5 Right knee arthrotomy with irrigation and debridement, primary repair of right quadriceps tendon, irrigation and debridement of right olecranon bursa ICU management Pain management Physical therapy - no leg lift or quad sets to RLE - knee immobilizer on right leg at all times Ice application to operative site x 48 hours Do not change dressings to right arm or right leg Monitor ICPs still not stable enough for surgery to right arm. will need to be able to sustain being in lateral position before can proceed with ORIF of humerus Zachariah Gonzalez/Faculty I On Call Medical Assistant PA Oct 31, 2017 07:19
[2017-10-31] MEDS: CHLORHEXIDINE 0.12% (ORAL KIT) 15 ML CUP MT SCH ×2 (08:10→19:31)
[2017-10-31] MEDS: DOCUSATE SODIUM 50 MG/SENNA 8.6 MG TAB PO SCH ×3 (08:10→21:00)
[2017-10-31] MEDS: LACTULOSE SYRUP 20 GM/30 ML CUP PO SCH (08:10)
[2017-10-31] MEDS: FAMOTIDINE 20 MG TAB PO SCH ×3 (08:10→21:00)
[2017-10-31] MEDS: levETIRAcetam INJ 500 MG in SODIUM CHLORIDE 0.9% INJ 100 ML IV SCH ×2 (08:10→20:30)
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
[2017-10-31] MEDS ORDERED: DEXMEDETOMIDINE INJ 200 MCG in SODIUM CHLORIDE 0.9% INJ 50 ML IV PRN (09:15)
[2017-10-31] MEDS ORDERED: LIDOCAINE 1%/EPINEPHrine 1:100,000 SOLN 50 ML VIAL INFIL ONE (10:45)
[2017-11-01] VITALS (12 sets, daily range): BP systolic 131–148; BP diastolic 74–90; PULSE 101–127; RESP 18–29; TEMP 98.1–99.7; O2SAT 93–100
[2017-11-01] MEDS: CHLORHEXIDINE GLUCONATE 2 % 1 PACK (2 CLOTHS) TOP SCH (04:00)
[2017-11-01 04:38] LABS: AUTOMATED NEUTROPHIL # 6.4 TH/MM3 (1.8-7.7); BASOPHIL % 0.2 % (0.0-2.0); EOSINOPHIL % 0.1 % (0.0-4.0); HEMATOCRIT 27.4 % (39.0-51.0); HEMOGLOBIN 9.6 GM/DL (13.0-17.0); LYMPH % 5.3 % (9.0-44.0); LYMPHOCYTE # 0.4 TH/MM3 (1.0-4.8); MEAN CELL VOLUME 89.3 FL (80.0-100.0); MEAN CORPUSCULAR HEMOGLOBIN 31.3 PG (27.0-34.0); MEAN CORPUSCULAR HGB CONC 35.1 % (32.0-36.0); MEAN PLATELET VOLUME 6.2 FL (7.0-11.0); MONO % 8.9 % (0.0-8.0); MONOCYTE # 0.7 TH/MM3 (0-0.9); NEUT % 85.5 % (16.0-70.0); PLATELET COUNT 413 TH/MM3 (150-450); RED BLOOD COUNT 3.06 MIL/MM3 (4.50-5.90); RED CELL DISTRIBUTION WIDTH 12.4 % (11.6-17.2); WHITE BLOOD COUNT 7.4 TH/MM3 (4.0-11.0)
[2017-11-01 05:14] LABS: ALBUMIN 3.3 GM/DL (3.4-5.0); ALKALINE PHOSPHATASE 72 U/L (45-117); ALT (GPT) 48 U/L (12-78); AST (GOT) 73 U/L (15-37); BICARBONATE 21.9 MEQ/L (21.0-32.0); BLOOD UREA NITROGEN 17 MG/DL (7-18); CHLORIDE 103 MEQ/L (98-107); CREATININE 0.75 MG/DL (0.60-1.30); GLOMERULAR FILTRATION RATE 130 ML/MIN (>89); GLUCOSE,RANDOM 104 MG/DL (74-106); SODIUM (NA) 137 MEQ/L (136-145); TOTAL BILIRUBIN ADULT 1.1 MG/DL (0.2-1.0); TOTAL PROTEIN 7.8 GM/DL (6.4-8.2)
--- NOTE | 2017-11-01 06:07 | RADRPT ---
EXAM DATE/TIME: 11/01/2017 05:09 [facility] COMPARISON: CHEST SINGLE AP, October 31, 2017, 3:51. INDICATIONS : Follow up trauma. Short of breath. MEDICAL HISTORY : None. SURGICAL HISTORY : None. ENCOUNTER: Subsequent ACUITY: 4 - 6 days PAIN SCORE: Non-responsive. LOCATION: Bilateral chest FINDINGS: Right subclavian central line is stable. There has been interval extubation and removal of nasogastri c tube. There is hazy contusion or infiltrate in the medial right lung base. Left lung is clear. No s ignificant effusion. CONCLUSION: Interval extubation. Grossly stable aeration Jonah Ramirez MD on November 01, 2017 at 6:04 Board Certified Radiologist. This report was verified electronically.
[2017-11-01] MEDS ORDERED: VANCOMYCIN HCL 1000 MG VIAL ONE (06:59)
[2017-11-01] MEDS ORDERED: GENTAMICIN SULFATE 80 MG/2 ML VIAL ONE (07:00)
[2017-11-01] MEDS ORDERED: ceFAZolin INJ 1,000 MG VIAL ONE (07:00)
--- NOTE | 2017-11-01 07:04 | PD.ORT.PN ---
Subjective Subjective Remarks awake and stable Objective Vitals Vital Signs Date Time Temp Pulse Resp B/P (MAP) Pulse Ox O2 Delivery O2 Flow Rate FiO2 11/01/17 06:25 99.1 104 24 125/56 (79) 97 134/77 (96) 11/01/17 06:25 104 11/01/17 06:00 104 11/01/17 04:00 115 11/01/17 04:00 99.1 115 23 131/74 (93) 97 11/01/17 02:00 101 11/01/17 00:00 99.0 114 18 134/80 (98) 100 11/01/17 00:00 114 10/31/17 22:00 110 10/31/17 21:08 97 21 10/31/17 20:00 108 10/31/17 20:00 99.3 108 25 138/78 (98) 99 10/31/17 19:00 100 Room Air 10/31/17 18:00 109 10/31/17 16:00 98.2 104 28 137/78 (97) 100 10/31/17 16:00 30 10/31/17 16:00 104 10/31/17 14:00 106 10/31/17 13:44 22 10/31/17 12:00 30 10/31/17 12:00 98.9 110 26 159/90 (113) 100 10/31/17 12:00 105 10/31/17 11:24 100 Nasal Cannula 2.00 10/31/17 11:24 100 Nasal Cannula 2 10/31/17 10:00 100 10/31/17 09:20 Nasal Cannula 30 10/31/17 09:20 100 30 10/31/17 08:00 100.4 90 18 123/66 (85) 100 10/31/17 08:00 30 10/31/17 08:00 95 10/31/17 07:41 100 30 I/O 10/31/17 10/31/17 10/31/17 11/01/17 11/01/17 11/01/17 07:00 15:00 23:00 07:00 15:00 23:00 Intake Total 296 ml 315 ml 320 ml 175 ml Output Total 1200 ml 1675 ml 900 ml Balance -904 ml 315 ml -1355 ml -725 ml Intake Oral 175 ml IV Total 100 ml 315 ml 200 ml Tube Feeding 106 ml 120 ml Tube Irrigant 90 ml Output Urine Total 1200 ml 1675 ml 900 ml # Bowel Movements 0 0 Result Diagram: 11/01/17 0430 11/01/17 0430 Imaging Last 24 hours Impressions Chest X-Ray 10/27/17 0600 Signed Impressions: Service Date/Time: Friday, October 27, 2017 03:18 - CONCLUSION: The endotracheal tube, nasogastric tube and right subclavian central line are in good position. Jan Pino MD Objective Remarks Right elbow yehuda wrap and splint intact skin warm 2+ radial pulses Right knee yehuda wrap intact knee immobilizer in place skin warm 2+ dorsalis pedis pulses Assessment & Plan Assessment and Plan POD #6 Right knee arthrotomy with irrigation and debridement, primary repair of right quadriceps tendon, irrigation and debridement of right olecranon bursa ICU management Pain management Physical therapy - no leg lift or quad sets to RLE - knee immobilizer on right leg at all times Do not change dressings to right arm or right leg NPO Surgery this morning with Dr Cristobal for ORIF right humeral shaft John Bianchi Jr. Nov 01, 2017 07:04
[2017-11-01] MEDS ORDERED: HYDR-3583 PO (07:12)
[2017-11-01] MEDS ORDERED: WHEEMIS3 (07:12)
[2017-11-01] MEDS: CHLORHEXIDINE 0.12% (ORAL KIT) 15 ML CUP MT SCH ×2 (08:00→20:00)
--- NOTE | 2017-11-01 08:27 | PD.OP ---
cc: Prasanth Ca MD Operative Report Date of Surgery: Nov 01, 2017 Preoperative Diagnosis: Displaced right humerus shaft fracture Postoperative Diagnosis: Procedure: Open reduction internal fixation right humerus Surgeon: Prasanth Ca Public Health Informatician(s): CLEESTINA Gil PA-C The surgical procedure was assisted by my physician assistant distribution manager. My P.A. presence was necessary throughout this case for the manipulation and positioning of the surgical extremity. My P.A. was assisting me throughout the duration of this procedure. The skill set of a physician assistant distribution manager was medically necessary to complete this procedure. During the surgical case the neurosurgical physician assistant was working at the back table and the physician assistant distribution manager was directly assisting me. Operation and Findings: Patient was seen and evaluated preoperatively. Treatment options were discussed regarding right humerus fracture including surgical and nonsurgical treatments. After detailed discussion of risk and benefits of procedure, patient and his family wish to proceed with surgery. Risks of surgery include bleeding, infection, nonunion, malunion, painful hardware, loss of motion of shoulder and elbow, weakness and numbness of arm, as well as medical competitions including blood clots stroke and . Patient was brought to operating room and placed on the OR table. GETA was administered by anesthesiologist. Patient was positioned in lateral decubitus position. Extremities were well-padded. Axillary roll was placed. Operative arm and shoulder were prepped with alcohol followed by Hibiclens and draped usual sterile fashion. Timeout procedure was performed. IV antibiotics were given prior to incision. A standard posterior approach was utilized. Subcutaneous tissues was dissected with Bovie. The triceps muscle was split midline. The radial nerve was identified and protected throughout the procedure. The nerve was intact. The fracture was identified. Soft tissue was removed from the fracture site. Fracture site was cleaned with curettes. At this point the fracture was reduced using fracture tenaculums. Multiplanar fluoroscopy confirmed excellent of fracture. A Synthes 3.5 plate was contoured to fit the humerus. Plate was provisionally held the bone with K wires. 3.5 cortical screws were placed on each side of the fracture. The screws were placed to add compression to fracture. Multiple screws were placed in each side of the fracture. All screws were predrilled and premeasured for appropriate length. Final fluoroscopy revealed excellent alignment of fracture with well-placed hardware. Incision was thoroughly irrigated. Fascia was closed with #1 Vicryl, subcutaneous tissues closed with 3-0 Vicryl, and skin was closed with kaylee. Sterile dressings were applied. Needle and sponge counts were correct. Patient was placed into a sling, and then transferred to recovery room in stable condition Prasanth Ca MD Nov 01, 2017 08:27
[2017-11-01] MEDS ORDERED: MORPHINE SULFATE 4 MG/ML INJ IV PUSH PRN (08:30)
[2017-11-01] MEDS ORDERED: ONDANSETRON HCL 4 MG/2 ML VIAL IVP PRN (08:30)
[2017-11-01] MEDS ORDERED: DO NOT ADM ANY ANTICOAGULANT DRUGS PRN (09:00)
[2017-11-01] MEDS: FAMOTIDINE 20 MG TAB PO SCH ×2 (10:12→21:18)
[2017-11-01] MEDS: DOCUSATE SODIUM 50 MG/SENNA 8.6 MG TAB PO SCH ×2 (10:12→21:18)
[2017-11-01] MEDS: LACTULOSE SYRUP 20 GM/30 ML CUP PO SCH (10:12)
[2017-11-01] MEDS: LIDOCAINE HCL 5% PATCH T-DERMAL SCH (10:13)
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
--- NOTE | 2017-11-01 11:36 | RADRPT ---
EXAM DATE/TIME: 11/01/2017 08:12 [facility] COMPARISON: HUMERUS RIGHT (MIN 2VWS), October 25, 2017, 21:33. INDICATIONS : Right humerus open reduction internal fixation. MEDICAL HISTORY : None. SURGICAL HISTORY : None. ENCOUNTER: Subsequent ACUITY: 1 day PAIN SCORE: Non-responsive. LOCATION: Right humerus FINDINGS: 2 view, intraoperative examination of the right humerus shows interval open reduction and internal fi xation with a sideplate multiple osseous screws securing the comminuted right humeral fracture. The m ain fracture fragments are in excellent anatomic alignment. CONCLUSION: Successful open reduction internal fixation of the comminuted right humeral diaphyseal fracture as above. Saeid Zamora MD on November 01, 2017 at 11:32 Board Certified Radiologist. This report was verified electronically.
[2017-11-01] MEDS ORDERED: LIDOCAINE HCL 1% PF 5 ML SYRINGE OTHER ONE (12:00)
[2017-11-01] MEDS ORDERED: GLYCOPYRROLATE 1 MG/5 ML SYRINGE IV PUSH ONE (12:00)
[2017-11-01] MEDS ORDERED: PROPOFOL 200 MG/20 ML AMP IV ONE (12:00)
[2017-11-01] MEDS ORDERED: hydrALAZINE HCL 20 MG/ML VIAL IV ONE (12:00)
[2017-11-01] MEDS ORDERED: ONDANSETRON HCL 4 MG/2 ML VIAL IV ONE (12:00)
[2017-11-01] MEDS ORDERED: ROCURONIUM INJ 50 MG/5 ML SYRINGE IV PUSH ONE (12:00)
[2017-11-01] MEDS ORDERED: LACTATED RINGER'S 1000 ML INJ 1,000 ML IV ONE (12:00)
[2017-11-01] MEDS ORDERED: NEOSTIGMINE 5 MG/5 ML SYRINGE IV PUSH ONE (12:00)
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
[2017-11-01] MEDS ORDERED: ceFAZolin 2 GM PREMIX 50 ML IV SCH (15:00)
[2017-11-01] MEDS ORDERED: CEFAZOLIN INJ 2,000 MG in SODIUM CHLORIDE 0.9% INJ 100 ML IV SCH (16:00)
[2017-11-01] MEDS: CEFAZOLIN INJ 2,000 MG in SODIUM CHLORIDE 0.9% INJ 100 ML IV SCH ×2 (16:32→21:53)
[2017-11-01] MEDS: REMOVE OLD LIDOCAINE PATCH T-DERMAL SCH (21:00)
[2017-11-01] MEDS: ACETAMINOPHEN/HYDROcodone 325 MG/10 MG TAB PO PRN (21:19)
[2017-11-02 01:17] VITALS: BP 127/80; PULSE 107; RESP 20; TEMP 98.7; O2SAT 96
[2017-11-02 04:00] VITALS: BP 127/70; PULSE 112; RESP 18; TEMP 99.2; O2SAT 95
[2017-11-02 04:11] LABS: AUTOMATED NEUTROPHIL # 8.4 TH/MM3 (1.8-7.7); BASOPHIL % 0.4 % (0.0-2.0); EOSINOPHIL % 0.2 % (0.0-4.0); HEMATOCRIT 27.1 % (39.0-51.0); HEMOGLOBIN 9.6 GM/DL (13.0-17.0); LYMPH % 5.6 % (9.0-44.0); LYMPHOCYTE # 0.6 TH/MM3 (1.0-4.8); MEAN CELL VOLUME 89.6 FL (80.0-100.0); MEAN CORPUSCULAR HEMOGLOBIN 31.9 PG (27.0-34.0); MEAN CORPUSCULAR HGB CONC 35.6 % (32.0-36.0); MEAN PLATELET VOLUME 6.1 FL (7.0-11.0); MONO % 9.2 % (0.0-8.0); MONOCYTE # 0.9 TH/MM3 (0-0.9); NEUT % 84.6 % (16.0-70.0); PLATELET COUNT 504 TH/MM3 (150-450); RED BLOOD COUNT 3.02 MIL/MM3 (4.50-5.90); RED CELL DISTRIBUTION WIDTH 12.6 % (11.6-17.2); WHITE BLOOD COUNT 9.9 TH/MM3 (4.0-11.0)
[2017-11-02 04:34] LABS: ALBUMIN 3.3 GM/DL (3.4-5.0); AST (GOT) 72 U/L (15-37); BICARBONATE 25.6 MEQ/L (21.0-32.0); BLOOD UREA NITROGEN 16 MG/DL (7-18); CALCIUM 8.8 MG/DL (8.5-10.1); CHLORIDE 101 MEQ/L (98-107); CREATININE 0.82 MG/DL (0.60-1.30); GLOMERULAR FILTRATION RATE 117 ML/MIN (>89); GLUCOSE,RANDOM 107 MG/DL (74-106); SODIUM (NA) 135 MEQ/L (136-145)
[2017-11-02 04:35] LABS: ALT (GPT) 61 U/L (12-78)
[2017-11-02 04:38] LABS: ALKALINE PHOSPHATASE 74 U/L (45-117); TOTAL BILIRUBIN ADULT 1.1 MG/DL (0.2-1.0); TOTAL PROTEIN 7.6 GM/DL (6.4-8.2)
[2017-11-02] MEDS: CEFAZOLIN INJ 2,000 MG in SODIUM CHLORIDE 0.9% INJ 100 ML IV SCH ×3 (06:31→23:10)
[2017-11-02] MEDS ORDERED: ACETAMINOPHEN 325 MG TAB PO PRN (07:30)
[2017-11-02 08:00] VITALS: BP 124/83; PULSE 113; RESP 16; TEMP 98.4; O2SAT 97
--- NOTE | 2017-11-02 08:12 | PD.ORT.PN ---
Subjective Subjective Remarks POD 7 s/p I&D with quad tendon repair right knee POD 1 s/p ORIF right humerus fx stable. no changes. doing well. pain controlled Objective Vitals Vital Signs Date Time Temp Pulse Resp B/P (MAP) Pulse Ox O2 Delivery O2 Flow Rate FiO2 11/02/17 04:00 99.2 112 18 127/70 (89) 95 11/02/17 01:17 98.7 107 20 127/80 (96) 96 Arterial Line 11/02/17 00:20 Room Air 11/01/17 20:00 Room Air 11/01/17 20:00 99.7 118 22 148/88 (108) 96 147/86 (106) 11/01/17 20:00 127 11/01/17 18:00 112 11/01/17 16:00 98.1 114 28 135/89 (104) 99 11/01/17 16:00 114 11/01/17 14:00 114 11/01/17 12:00 98.3 115 29 133/90 (104) 93 11/01/17 12:00 111 11/01/17 11:47 99 21 11/01/17 10:00 96 Room Air 11/01/17 10:00 98.5 111 26 145/88 (107) 93 11/01/17 10:00 111 11/01/17 09:30 98.4 108 24 142/76 (98) 100 Room Air 11/01/17 09:15 102 26 138/82 (100) 98 Room Air 11/01/17 09:00 114 24 140/84 (102) 96 Room Air 11/01/17 08:50 98.2 119 24 135/82 (99) 98 Room Air I/O 11/01/17 11/01/17 11/01/17 11/02/17 11/02/17 11/02/17 07:00 15:00 23:00 07:00 15:00 23:00 Intake Total 175 ml 1000 ml 600 ml 720 ml Output Total 900 ml 230 ml 1450 ml 1550 ml Balance -725 ml 770 ml -850 ml -830 ml Intake Oral 175 ml 0 ml 360 ml 720 ml IV Total 1000 ml 240 ml Output Urine Total 900 ml 200 ml 1450 ml 1550 ml Estimated Blood Loss 30 ml # Bowel Movements 0 0 0 Result Diagram: 11/02/17 0349 11/02/17 0349 Imaging Last 24 hours Impressions Chest X-Ray 10/27/17 0600 Signed Impressions: Service Date/Time: Friday, October 27, 2017 03:18 - CONCLUSION: The endotracheal tube, nasogastric tube and right subclavian central line are in good position. Jan Pino MD Objective Remarks RUE: dressings clean and dry. intact. NVI Right knee yehuda wrap intact knee immobilizer in place skin warm 2+ dorsalis pedis pulses Assessment & Plan Assessment and Plan POD #7 Right knee arthrotomy with irrigation and debridement, primary repair of right quadriceps tendon, irrigation and debridement of right olecranon bursa POD #1 ORIF Right Humeral Shaft Fx s/p right greater trochanter fx - nonop RUE: -NWB -dressing changes POD 2 -PROM of shoulder and elbow RLE: -PWB up to 50lbs with knee brace - no ROM -no quad sets or leg lifts -no active abduction -ortho surgeries complete -f/u wtih Levar or MERT in 2 weeks Zachariah Gonzalez/[employer] Developer MERT Nov 02, 2017 08:12
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
[2017-11-02] MEDS: FAMOTIDINE 20 MG TAB PO SCH ×2 (10:26→21:21)
[2017-11-02] MEDS: LACTULOSE SYRUP 20 GM/30 ML CUP PO SCH (10:26)
[2017-11-02] MEDS: DOCUSATE SODIUM 50 MG/SENNA 8.6 MG TAB PO SCH ×2 (10:26→21:00)
[2017-11-02] MEDS: ACETAMINOPHEN/HYDROcodone 325 MG/10 MG TAB PO PRN (10:26)
[2017-11-02] MEDS: LIDOCAINE HCL 5% PATCH T-DERMAL SCH (10:27)
[2017-11-02] MEDS: PROPRANOLOL HCL 10 MG TAB PO SCH ×3 (10:28→21:21)
[2017-11-02 12:00] VITALS: BP 117/66; PULSE 94; RESP 16; TEMP 98.5; O2SAT 95
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
[2017-11-02] MEDS: chlorproMAZINE HCL 25 MG TAB PO SCH ×2 (15:07→21:21)
[2017-11-02] MEDS: ENOXAPARIN SODIUM 40 MG/0.4 ML SYRINGE SQ SCH (15:08)
[2017-11-02 16:00] VITALS: BP 116/63; PULSE 101; RESP 16; TEMP 98; O2SAT 93
[2017-11-02] MEDS: LACTATED RINGER'S 1000 ML INJ 1,000 ML IV SCH (17:00)
[2017-11-02 20:00] VITALS: BP 119/59; PULSE 124; RESP 20; TEMP 98.8; O2SAT 95
[2017-11-02] MEDS: REMOVE OLD LIDOCAINE PATCH T-DERMAL SCH (21:00)
[2017-11-03] VITALS: BP 104/71; PULSE 125; RESP 20; TEMP 98.5; O2SAT 95
[2017-11-03 04:00] VITALS: BP 119/70; PULSE 101; RESP 18; TEMP 97.8; O2SAT 97
[2017-11-03] MEDS: PROPRANOLOL HCL 10 MG TAB PO SCH ×3 (06:12→21:28)
[2017-11-03] MEDS: chlorproMAZINE HCL 25 MG TAB PO SCH ×3 (06:23→21:28)
[2017-11-03] MEDS: CEFAZOLIN INJ 2,000 MG in SODIUM CHLORIDE 0.9% INJ 100 ML IV SCH (07:00)
[2017-11-03 08:00] VITALS: BP 109/65; PULSE 96; RESP 16; TEMP 98; O2SAT 96
--- NOTE | 2017-11-03 08:01 | PD.ORT.PN ---
Subjective Post Op Day #: 2 Subjective Remarks Patient resting in bed with some lethargy and minimally verbal. Patient does follow commands and answers appropriately. Patient is slow to react to questioning. Patient denies SOB or CP. Objective Vitals Vital Signs Date Time Temp Pulse Resp B/P (MAP) Pulse Ox O2 Delivery O2 Flow Rate FiO2 11/03/17 04:00 97.8 101 18 119/70 (86) 97 11/03/17 00:00 98.5 125 20 104/71 (82) 95 11/02/17 21:15 Room Air 11/02/17 20:00 98.8 124 20 119/59 (79) 95 11/02/17 16:00 98.0 101 16 116/63 (80) 93 11/02/17 12:00 98.5 94 16 117/66 (83) 95 11/02/17 08:00 98.4 113 16 124/83 (97) 97 I/O 11/02/17 11/02/17 11/02/17 11/03/17 11/03/17 11/03/17 07:00 15:00 23:00 07:00 15:00 23:00 Intake Total 720 ml 480 ml 240 ml Output Total 1550 ml 400 ml Balance -830 ml 80 ml 240 ml Intake Oral 720 ml 480 ml 240 ml Output Urine Total 1550 ml 400 ml # Voids 1 1 # Bowel Movements 0 1 1 1 Result Diagram: 11/02/17 0349 11/02/17 0349 Imaging Last 24 hours Impressions Chest X-Ray 10/27/17 0600 Signed Impressions: Service Date/Time: Friday, October 27, 2017 03:18 - CONCLUSION: The endotracheal tube, nasogastric tube and right subclavian central line are in good position. Jan Pino MD Objective Remarks RUE: dressings clean and dry. intact. Patient UE + NVI intact. + SILT Right knee yehuda wrap intact knee immobilizer in place skin warm 2+ dorsalis pedis pulses patient moves foot on command. no calf pain with soft calf. Normal respirations with symmetric chest wall rise. Follows commands and answers questions appropriately Assessment & Plan Ortho Post Op Day #: 2 Problem List: Assessment and Plan POD #8 Right knee arthrotomy with irrigation and debridement, primary repair of right quadriceps tendon, irrigation and debridement of right olecranon bursa POD #2 ORIF Right Humeral Shaft Fx s/p right greater trochanter fx - nonop Rib fracture RUE: -NWB -dressing changes POD 2 -PROM of shoulder and elbow RLE: -PWB up to 50lbs with knee brace - no ROM -no quad sets or leg lifts -no active abduction -ortho surgeries complete -f/u wtih [facility] or [facility] in 2 weeks Say Antoine Nov 03, 2017 08:01
[2017-11-03] MEDS: LIDOCAINE HCL 5% PATCH T-DERMAL SCH (08:36)
[2017-11-03] MEDS: DOCUSATE SODIUM 50 MG/SENNA 8.6 MG TAB PO SCH ×2 (08:36→21:00)
[2017-11-03] MEDS: FAMOTIDINE 20 MG TAB PO SCH ×2 (08:36→21:27)
[2017-11-03] MEDS: ACETAMINOPHEN/HYDROcodone 325 MG/10 MG TAB PO PRN ×2 (08:37→13:27)
[2017-11-03] MEDS: LACTULOSE SYRUP 20 GM/30 ML CUP PO SCH (08:37)
[2017-11-03] MEDS: LACTATED RINGER'S 1000 ML INJ 1,000 ML IV SCH (09:40)
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
[2017-11-03] MEDS: METOCLOPRAMIDE HCL 10 MG/2 ML VIAL IV PUSH SCH ×3 (10:52→21:28)
[2017-11-03 12:00] VITALS: BP 125/66; PULSE 108; RESP 16; TEMP 98; O2SAT 98
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
[2017-11-03] MEDS: ENOXAPARIN SODIUM 40 MG/0.4 ML SYRINGE SQ SCH (14:30)
[2017-11-03 16:00] VITALS: BP 111/64; PULSE 96; RESP 16; TEMP 97.6; O2SAT 98
[2017-11-03 20:00] VITALS: BP 125/69; PULSE 107; RESP 18; TEMP 98.7; O2SAT 97
[2017-11-03] MEDS: REMOVE OLD LIDOCAINE PATCH T-DERMAL SCH (21:27)
[2017-11-04] VITALS: BP 117/63; PULSE 103; RESP 18; TEMP 97.8; O2SAT 97
[2017-11-04] MEDS: LACTATED RINGER'S 1000 ML INJ 1,000 ML IV SCH (02:20)
[2017-11-04 04:00] VITALS: BP 153/76; PULSE 106; RESP 18; TEMP 98.4; O2SAT 99
[2017-11-04] MEDS: chlorproMAZINE HCL 25 MG TAB PO SCH (06:00)
[2017-11-04] MEDS: METOCLOPRAMIDE HCL 10 MG/2 ML VIAL IV PUSH SCH (06:10)
[2017-11-04] MEDS: PROPRANOLOL HCL 10 MG TAB PO SCH ×3 (06:10→20:55)
[2017-11-04 08:00] VITALS: BP 122/72; PULSE 98; RESP 16; TEMP 98; O2SAT 96
[2017-11-04] MEDS: DOCUSATE SODIUM 50 MG/SENNA 8.6 MG TAB PO SCH ×2 (08:32→20:55)
[2017-11-04] MEDS: ACETAMINOPHEN/HYDROcodone 325 MG/10 MG TAB PO PRN ×2 (08:32→14:28)
[2017-11-04] MEDS: FAMOTIDINE 20 MG TAB PO SCH ×2 (08:32→20:54)
[2017-11-04] MEDS: LIDOCAINE HCL 5% PATCH T-DERMAL SCH (08:32)
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
[2017-11-04 12:00] VITALS: BP 123/80; PULSE 100; RESP 16; TEMP 98.7; O2SAT 98
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
[2017-11-04] MEDS: ENOXAPARIN SODIUM 40 MG/0.4 ML SYRINGE SQ SCH (13:14)
[2017-11-04 16:00] VITALS: BP 131/79; PULSE 106; RESP 16; TEMP 98.6; O2SAT 69; O2SAT 96
[2017-11-04 20:00] VITALS: BP 125/84; PULSE 111; RESP 17; TEMP 98.3; O2SAT 98
[2017-11-04] MEDS: REMOVE OLD LIDOCAINE PATCH T-DERMAL SCH (20:55)
[2017-11-05 00:55] VITALS: BP 119/79; PULSE 101; RESP 17; TEMP 98.9; O2SAT 99
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
[2017-11-05 03:05] VITALS: BP 124/70; PULSE 101; RESP 17; TEMP 98.1; O2SAT 99
[2017-11-05 05:37] LABS: AUTOMATED NEUTROPHIL # 12.4 TH/MM3 (1.8-7.7); BASOPHIL # 0.1 TH/MM3 (0-0.2); BASOPHIL % 0.7 % (0.0-2.0); EOSINOPHIL # 0.3 TH/MM3 (0-0.4); EOSINOPHIL % 1.9 % (0.0-4.0); HEMATOCRIT 34.6 % (39.0-51.0); HEMOGLOBIN 11.5 GM/DL (13.0-17.0); LYMPH % 9.5 % (9.0-44.0); LYMPHOCYTE # 1.4 TH/MM3 (1.0-4.8); MEAN CELL VOLUME 91.4 FL (80.0-100.0); MEAN CORPUSCULAR HEMOGLOBIN 30.4 PG (27.0-34.0); MEAN CORPUSCULAR HGB CONC 33.3 % (32.0-36.0); MEAN PLATELET VOLUME 6.3 FL (7.0-11.0); MONO % 5.4 % (0.0-8.0); MONOCYTE # 0.8 TH/MM3 (0-0.9); NEUT % 82.5 % (16.0-70.0); PLATELET COUNT 767 TH/MM3 (150-450); RED BLOOD COUNT 3.78 MIL/MM3 (4.50-5.90); RED CELL DISTRIBUTION WIDTH 13.1 % (11.6-17.2)
[2017-11-05 06:05] VITALS: BP 119/72; PULSE 109; RESP 15; TEMP 98.2; O2SAT 97
[2017-11-05] MEDS: PROPRANOLOL HCL 10 MG TAB PO SCH (06:05)
[2017-11-05 06:23] LABS: BICARBONATE 25.4 MEQ/L (21.0-32.0); CALCIUM 9.8 MG/DL (8.5-10.1); CREATININE 0.79 MG/DL (0.60-1.30)
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
[2017-11-05 07:28] VITALS: BP 119/64; PULSE 93; RESP 18; TEMP 98.2; O2SAT 98
[2017-11-05 08:05] VITALS: BP 119/64
[2017-11-05] MEDS: DOCUSATE SODIUM 50 MG/SENNA 8.6 MG TAB PO SCH (09:00)
[2017-11-05] MEDS: LIDOCAINE HCL 5% PATCH T-DERMAL SCH (09:19)
[2017-11-05] MEDS: FAMOTIDINE 20 MG TAB PO SCH (09:19)
[2017-11-05] MEDS ORDERED: PERI PO (10:22)
[2017-11-05] MEDS ORDERED: ENOX40P SQ (10:22)
[2017-11-05] MEDS ORDERED: LIDO1ADH4 T-DERMAL (10:22)
[2017-11-05] MEDS ORDERED: PROP10TA6 PO (10:22)
[2017-11-05 11:43] VITALS: BP 118/68; PULSE 92; RESP 18; TEMP 98.3; O2SAT 99
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
== END 2017-11-05 14:20 | DRG 955 ==
LOC: NEPI 21:44 → EDBD 22:02 → NEDA 22:02 → N03A 22:21 → N06B 11-02 00:34 → N06A 11-05 01:38
PROVIDERS: ADMIT Surgery Trauma Surgery; ATTEND Surgery Trauma Surgery
PROC: 5A1955Z Respiratory Ventilation, Greater than 96 Consecutive Hours (ICD-10-PCS; 2017-10-25)
PROC: 0SBC0ZZ Excision of Right Knee Joint, Open Approach (ICD-10-PCS; 2017-10-26)
PROC: 0MD30ZZ Extraction of Right Elbow Bursa and Ligament, Open Approach (ICD-10-PCS; 2017-10-26)
PROC: 0KQQ0ZZ Repair Right Upper Leg Muscle, Open Approach (ICD-10-PCS; 2017-10-26)
PROC: 4A103BD Monitoring of Intracranial Pressure, Percutaneous Approach (ICD-10-PCS; 2017-10-26)
PROC: 03HY32Z Insertion of Monitoring Device into Upper Artery, Percutaneous Approach (ICD-10-PCS; 2017-10-26)
PROC: 02HV33Z Insertion of Infusion Device into Superior Vena Cava, Percutaneous Approach (ICD-10-PCS; 2017-10-26)
PROC: 00H032Z Insertion of Monitoring Device into Brain, Percutaneous Approach (ICD-10-PCS; principal; 2017-10-26 10:28)
PROC: 0PSF04Z Reposition Right Humeral Shaft with Internal Fixation Device, Open Approach (ICD-10-PCS; 2017-11-01)
DX: S06.5X5A Traumatic subdural hemorrhage with loss of consciousness greater than 24 hours with return to pre-existing conscious level, initial encounter (principal); S27.321A Contusion of lung, unilateral, initial encounter; S72.114A Nondisplaced fracture of greater trochanter of right femur, initial encounter for closed fracture; S06.6X5A Traumatic subarachnoid hemorrhage with loss of consciousness greater than 24 hours with return to pre-existing conscious level, initial encounter; J96.90 Respiratory failure, unspecified, unspecified whether with hypoxia or hypercapnia; S22.059A Unspecified fracture of T5-T6 vertebra, initial encounter for closed fracture; S22.41XA Multiple fractures of ribs, right side, initial encounter for closed fracture; S32.039A Unspecified fracture of third lumbar vertebra, initial encounter for closed fracture; D69.6 Thrombocytopenia, unspecified; S42.321A Displaced transverse fracture of shaft of humerus, right arm, initial encounter for closed fracture; S22.079A Unspecified fracture of T9-T10 vertebra, initial encounter for closed fracture; S22.069A Unspecified fracture of T7-T8 vertebra, initial encounter for closed fracture; S06.1X Traumatic cerebral edema; S76.111A Strain of right quadriceps muscle, fascia and tendon, initial encounter; S42.101A Fracture of unspecified part of scapula, right shoulder, initial encounter for closed fracture; S42.102A Fracture of unspecified part of scapula, left shoulder, initial encounter for closed fracture; S02.119A Unspecified fracture of occiput, initial encounter for closed fracture; R40.2431 Glasgow coma scale score 3-8, in the field [EMT or ambulance]; R00.0 Tachycardia, unspecified; S51.021A Laceration with foreign body of right elbow, initial encounter; V29.9XXA Motorcycle rider (driver) (passenger) injured in unspecified traffic accident, initial encounter
CPT/HCPCS: 36556; 36600; 61210; 70450; 71045; 71260; 72125; 72129; 72132; 72170; 73060; 73100; 74177; 76000; 80048; 80053; 80307; 82805; 83735; 83930; 84100; 84155; 84295; 85025; 85610; 85730; 86850; 86900; 86901; 86920; 87641; 90471; 90715; 93970; 94002; 94003; 94150; 94640; 94664; 94667; 94770; 96365; 96368; 96375; 99291; G0390; J0131; J0360; J0690; J0696; J1580; J1650; J1953; J2250; J2405; J2710; J2765; J3010; J3370; J3475; J3480; J7030; J7050; J7120; L0120; L0200; L0484; P9045; Q9967

== ENCOUNTER 2017-11-21 16:36 | Emergency (ER) | payer SELFPAY ==
[~2017-11-21] VITALS: Ht 172.7 cm; Wt 60.0 kg
[~2017-11-21 16:36] MED LIST: COMMODE 3-IN-11 MIS; TRAZ50TA12 PO; WHEEMIS3
[2017-11-21 16:42] VITALS: BP 134/75; PULSE 90; RESP 16; TEMP 97.8; O2SAT 98
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
[2017-11-21] MEDS ORDERED: BACT800T5 PO (18:04)
[2017-11-21] MEDS ORDERED: DOXY100C PO (18:04)
== END 2017-11-21 19:11 | disposition home or self-care (01) ==
LOC: NEPE 16:36
DX: T81.31XA Disruption of external operation (surgical) wound, not elsewhere classified, initial encounter (principal); R55 Syncope and collapse; Z86.59 Personal history of other mental and behavioral disorders
CPT/HCPCS: 99283